=== PATIENT | female | born 1995 | race American Indian/Alaskan Native ===

== ENCOUNTER 2019-05-18 02:13 | Emergency (ER) | payer BC ==
[2019-05-18] MEDS ORDERED: ONDANSETRON 4 MG ODT TAB PO ONE (02:34)
[2019-05-18] MEDS ORDERED: ONDANSETRON 4 MG ODT TAB ONE (02:36)
[2019-05-18 03:08] LABS: Basophils % (Auto) 0.4 % (0.0-1.8); Eosinophils # (Auto) 0.2 K/mm3 (0.0-0.4); Eosinophils % (Auto) 1.9 % (0.0-4.3); Hematocrit 39.9 % (30.3-42.9); Hemoglobin 13.1 gm/dl (10.1-14.3); Lymphocytes # (Auto) 2.1 K/mm3 (1.2-5.4); Lymphocytes % (Auto) 23.5 % (13.4-35.0); Mean Corpuscular HGB Conc 33 % (30-34); Mean Corpuscular Volume 89 fl (79-97); Monocytes # (Auto) 0.4 K/mm3 (0.0-0.8); Monocytes % (Auto) 4.8 % (0.0-7.3); Platelet Count 223 K/mm3 (140-440); Red Blood Count 4.47 M/mm3 (3.65-5.03); Red Cell Distribution Width 14.1 % (13.2-15.2)
[2019-05-18] MEDS ORDERED: SODIUM CHLORIDE 0.9% 1000 ML 1,000 ML IV ONE ×2 (03:27→08:45)
[2019-05-18] MEDS ORDERED: HYDROmorphone 1 MG/1 ML INJ IV ONE ×3 (03:32→05:38)
[2019-05-18] MEDS ORDERED: ONDANSETRON 4 MG/2 ML INJ IV ONE (03:32)
[2019-05-18] MEDS ORDERED: HYDROmorphone 1 MG/1 ML INJ ONE (03:34)
[2019-05-18] MEDS ORDERED: ONDANSETRON 4 MG/2 ML INJ ONE (03:34)
[2019-05-18 03:35] LABS: Alanine Aminotransferase 17 units/L (7-56); Albumin 4.6 g/dL (3.9-5); BUN/Creatinine Ratio 21; Blood Urea Nitrogen 15 mg/dL (7-17); Calcium 9.4 mg/dL (8.4-10.2); Hemolysis Index 5
[2019-05-18 04:28] LABS: Bacteria,Urine 1+ /HPF (Negative); Bilirubin,Urine NEG (Negative); Blood,Urine NEG (Negative); Color,Urine Yellow (Yellow); Mucus,Urine 1+ /HPF; Urobilinogen,Urine < 2.0 mg/dL (<2.0)
--- NOTE | 2019-05-18 04:41 | Cat Scan Report ---
CT ABDOMEN AND PELVIS WITH IV CONTRAST INDICATION: Upper abdominal pain, nausea, vomiting and diarrhea TECHNIQUE: Following the administration of intravenous contrast, multiple axial CT images of the abdo men and pelvis were acquired. Sagittal and coronal reformats were obtained. All CT performed at this facility utilize dose reduction techniques including automated exposure control, iterative reconstru ction and weight based dosing when appropriate to reduce patient radiation dose to as low as reasonab ly achievable. COMPARISON: None FINDINGS: Limited imaging of the bilateral lung bases demonstrates minimal left basilar atelectasis. Abdomen: The liver, spleen, gallbladder, pancreas, bilateral adrenal glands and bilateral kidneys bienvenido w no evidence of acute abnormality. There is no free fluid or evidence of bowel obstruction in the ap pendix is visualized and appears normal. Pelvis: Uterus and urinary bladder appear normal. There is no free pelvic fluid. Bones and Soft Tissues: Evaluation of bony structures demonstrates no evidence of acute bony abnormal ity. Evaluation of soft tissue structures demonstrates no focal soft tissue abnormality IMPRESSION: 1. No CT evidence of acute obstructive or inflammatory process within the abdomen or pelvis. Signer Name: Karla Lakhani MD Signed: 05/18/2019 4:37 AM Workstation Name: [id number]
--- NOTE | 2019-05-18 05:27 | Emergency Department Report ---
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 He was initially intermittent but today it became constant and severe rated 10/10 in intensity. Patient is uncomfortable and writhing in pain. She also complains of nausea, vomiting, and some diarrhea. No reports of fever or dysuria. 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 She states she had pancreatitis as a child does not know the cause. - Related Data Previous Rx's Medication Instructions Recorded Last Taken Type Famotidine [Pepcid] 20 mg PO BID #20 tablet 05/18/19 Unknown Rx HYDROcodone/APAP 5-325 [[place] 1 each PO Q4HR PRN #20 tablet 05/18/19 Unknown Rx 5/325] Ondansetron [Zofran Odt] 4 mg PO Q8HR PRN #20 tab.rapdis 05/18/19 Unknown Rx Allergies Allergy/AdvReac Type Severity Reaction Status Date / Time No Known Allergies Allergy Verified 05/18/19 02:37 ED Review of Systems ROS: Stated complaint: ABDOMINAL PAIN Other details as noted in HPI Comment: All other systems reviewed and negative ED Past Medical Hx - Past Medical History Previous Medical History?: Yes Additional medical history: abd tumor - Surgical History Past Surgical History?: Yes Additional Surgical History: abd - Social History Smoking Status: Never Smoker Substance Use Type: None - Medications Home Medications: Home Medications Medication Instructions Recorded Confirmed Last Taken Type Famotidine [Pepcid] 20 mg PO BID #20 tablet 05/18/19 Unknown Rx HYDROcodone/APAP 5-325 [[place] 1 each PO Q4HR PRN #20 tablet 05/18/19 Unknown Rx 5/325] Ondansetron [Zofran Odt] 4 mg PO Q8HR PRN #20 tab.rapdis 05/18/19 Unknown Rx ED Physical Exam - General Limitations: No Limitations - Other Other exam information: General: Distress secondary to pain Head: Atraumatic Eyes: normal appearance ENT: Moist mucous membranes Neck: Normal appearance, no midline tenderness Chest: Clear to auscultation bilaterally CV: Regular rate and rhythm Abdomen: Soft, normal bowel sounds, midline vertical suprapubic surgical scar. Patient has tenderness across the abdomen above the umbilicus without rebound or guarding Back: Normal inspection Extremity: Normal inspection infection, full range of motion Neuro: Alert O x 3, no facial asymmetry, speech clear, no gross motor sensory deficit Skin: No rash ED Course Vital Signs 05/18/19 05/18/19 05/18/19 02:25 03:30 03:45 Temperature 97.3 F L Pulse Rate 107 H Respiratory 18 Rate Blood Pressure 77/58 135/71 101/57 Blood Pressure [Right] O2 Sat by Pulse 98 100 Oximetry 05/18/19 05/18/19 05/18/19 04:00 04:03 04:15 Temperature Pulse Rate 93 H 71 Respiratory 18 16 16 Rate Blood Pressure 101/57 85/45 Blood Pressure [Right] O2 Sat by Pulse 100 100 100 Oximetry 05/18/19 05/18/19 05/18/19 04:31 04:45 05:00 Temperature Pulse Rate 65 76 61 Respiratory 19 20 20 Rate Blood Pressure 118/81 99/55 102/53 Blood Pressure [Right] O2 Sat by Pulse 100 100 99 Oximetry 05/18/19 05/18/19 05/18/19 05:15 06:26 08:35 Temperature 97.6 F Pulse Rate 73 69 Respiratory 14 18 18 Rate Blood Pressure 116/50 Blood Pressure 93/61 [Right] O2 Sat by Pulse 99 96 Oximetry 05/18/19 05/18/19 05/18/19 08:51 09:00 09:15 Temperature Pulse Rate 63 59 L 59 L Respiratory 22 19 17 Rate Blood Pressure 116/50 104/53 104/53 Blood Pressure [Right] O2 Sat by Pulse 98 99 Oximetry 05/18/19 05/18/19 05/18/19 09:30 09:45 10:00 Temperature Pulse Rate 69 64 63 Respiratory 25 H 19 19 Rate Blood Pressure 104/64 104/64 107/62 Blood Pressure [Right] O2 Sat by Pulse 99 97 97 Oximetry 05/18/19 05/18/19 05/18/19 10:16 10:30 10:45 Temperature Pulse Rate 57 L 58 L Respiratory 18 18 Rate Blood Pressure 107/62 107/62 107/62 Blood Pressure [Right] O2 Sat by Pulse 98 98 98 Oximetry 05/18/19 05/18/19 11:00 11:15 Temperature Pulse Rate Respiratory Rate Blood Pressure 93/56 117/60 Blood Pressure [Right] O2 Sat by Pulse 98 98 Oximetry - Reevaluation(s) Reevaluation #1: 05/18/19 05:42 Patient is currently more calm and without any distress after receiving Dilaudid 0.5 mg, Zofran 4 mg IV, and will liter normal saline. Upon reassessment she states she still is nauseated and has some residual pain. Patient has maxed out on Zofran and therefore Reglan, Benadryl, and repeat Dilaudid 0.5 provided. No vomiting noted in the ED. Po potassium also ordered. At this time patient has been prepped for discharge and will be discussed with oncoming provider to reassess and discharge if symptoms have improved. ED Medical Decision Making - Lab Data Result diagrams: 05/18/19 02:46 05/18/19 02:46 Lab Results 05/18/19 05/18/19 05/18/19 Range/Units 02:46 02:46 02:46 WBC 8.7 (4.5-11.0) K/mm3 RBC 4.47 (3.65-5.03) M/mm3 Hgb 13.1 (10.1-14.3) gm/dl Hct 39.9 (30.3-42.9) % MCV 89 (79-97) fl MCH 29 (28-32) pg MCHC 33 (30-34) % RDW 14.1 (13.2-15.2) % Plt Count 223 (140-440) K/mm3 Lymph % (Auto) 23.5 (13.4-35.0) % Mower % (Auto) 4.8 (0.0-7.3) % Eos % (Auto) 1.9 (0.0-4.3) % Baso % (Auto) 0.4 (0.0-1.8) % Lymph # 2.1 (1.2-5.4) K/mm3 Mower # 0.4 (0.0-0.8) K/mm3 Eos # 0.2 (0.0-0.4) K/mm3 Baso # 0.0 (0.0-0.1) K/mm3 Seg Neutrophils % 69.4 (40.0-70.0) % Seg Neutrophils # 6.1 (1.8-7.7) K/mm3 Sodium 141 (137-145) mmol/L Potassium 3.4 L (3.6-5.0) mmol/L Chloride 101.0 (98-107) mmol/L Carbon Dioxide 20 L (22-30) mmol/L Anion Gap 23 mmol/L BUN 15 (7-17) mg/dL Creatinine 0.7 (0.7-1.2) mg/dL Estimated GFR > 60 ml/min BUN/Creatinine Ratio 21 % Glucose 140 H (65-100) mg/dL Calcium 9.4 (8.4-10.2) mg/dL Total Bilirubin 0.30 (0.1-1.2) mg/dL AST 19 (5-40) units/L ALT 17 (7-56) units/L Alkaline Phosphatase 78 (35-129) units/L Total Protein 7.8 (6.3-8.2) g/dL Albumin 4.6 (3.9-5) g/dL Albumin/Globulin Ratio 1.4 % Lipase (13-60) units/L HCG, Qual Negative (Negative) Urine Color (Yellow) Urine Turbidity (Clear) Urine pH (5.0-7.0) Ur Specific [place] (1.003-1.030) Urine Protein (Negative) mg/dL Urine Glucose (UA) (Negative) mg/dL Urine Ketones (Negative) mg/dL Urine Blood (Negative) Urine Nitrite (Negative) Urine Bilirubin (Negative) Urine Urobilinogen (<2.0) mg/dL Ur Leukocyte Esterase (Negative) Urine WBC (Auto) (0.0-6.0) /HPF Urine RBC (Auto) (0.0-6.0) /HPF U Epithel Cells (Auto) (0-13.0) /HPF Urine Bacteria (Auto) (Negative) /HPF Urine Mucus /HPF 05/18/19 05/18/19 Range/Units 02:46 Unknown WBC (4.5-11.0) K/mm3 RBC (3.65-5.03) M/mm3 Hgb (10.1-14.3) gm/dl Hct (30.3-42.9) % MCV (79-97) fl MCH (28-32) pg MCHC (30-34) % RDW (13.2-15.2) % Plt Count (140-440) K/mm3 Lymph % (Auto) (13.4-35.0) % Mower % (Auto) (0.0-7.3) % Eos % (Auto) (0.0-4.3) % Baso % (Auto) (0.0-1.8) % Lymph # (1.2-5.4) K/mm3 Mower # (0.0-0.8) K/mm3 Eos # (0.0-0.4) K/mm3 Baso # (0.0-0.1) K/mm3 Seg Neutrophils % (40.0-70.0) % Seg Neutrophils # (1.8-7.7) K/mm3 Sodium (137-145) mmol/L Potassium (3.6-5.0) mmol/L Chloride (98-107) mmol/L Carbon Dioxide (22-30) mmol/L Anion Gap mmol/L BUN (7-17) mg/dL Creatinine (0.7-1.2) mg/dL Estimated GFR ml/min BUN/Creatinine Ratio % Glucose (65-100) mg/dL Calcium (8.4-10.2) mg/dL Total Bilirubin (0.1-1.2) mg/dL AST (5-40) units/L ALT (7-56) units/L Alkaline Phosphatase (35-129) units/L Total Protein (6.3-8.2) g/dL Albumin (3.9-5) g/dL Albumin/Globulin Ratio % Lipase 163 H (13-60) units/L HCG, Qual (Negative) Urine Color Yellow (Yellow) Urine Turbidity Clear (Clear) Urine pH 6.0 (5.0-7.0) Ur Specific [place] 1.027 (1.003-1.030) Urine Protein 30 mg/dl (Negative) mg/dL Urine Glucose (UA) Neg (Negative) mg/dL Urine Ketones Neg (Negative) mg/dL Urine Blood Neg (Negative) Urine Nitrite Neg (Negative) Urine Bilirubin Neg (Negative) Urine Urobilinogen < 2.0 (<2.0) mg/dL Ur Leukocyte Esterase Neg (Negative) Urine WBC (Auto) 1.0 (0.0-6.0) /HPF Urine RBC (Auto) 2.0 (0.0-6.0) /HPF U Epithel Cells (Auto) 2.0 (0-13.0) /HPF Urine Bacteria (Auto) 1+ (Negative) /HPF Urine Mucus 1+ /HPF - Radiology Data Radiology results: report reviewed CT ABDOMEN AND PELVIS WITH IV CONTRAST INDICATION: Upper abdominal pain, nausea, vomiting and diarrhea TECHNIQUE: Following the administration of intravenous contrast, multiple axial CT images of the abdomen and pelvis were acquired. Sagittal and coronal reformats were obtained. All CT performed at this facility utilize dose reduction techniques including automated exposure control, iterative reconstruction and weight based dosing when appropriate to reduce patient radiation dose to as low as reasonably achievable. COMPARISON: None FINDINGS: Limited imaging of the bilateral lung bases demonstrates minimal left basilar atelectasis. Abdomen: The liver, spleen, gallbladder, pancreas, bilateral adrenal glands and bilateral kidneys show no evidence of acute abnormality. There is no free fluid or evidence of bowel obstruction in the appendix is visualized and appears normal. Pelvis: Uterus and urinary bladder appear normal. There is no free pelvic fluid. Bones and Soft Tissues: Evaluation of bony structures demonstrates no evidence of acute bony abnormality. Evaluation of soft tissue structures demonstrates no focal soft tissue abnormality IMPRESSION: 1. No CT evidence of acute obstructive or inflammatory process within the abdomen or pelvis. - Medical Decision Making Despite patient's dramatic ED presentation her workup has been unremarkable. Initial BP was 77/53 in triage improved spontaneously and patient had a normal blood pressure when it was rechecked in the department without any intervention or treatment. CT abdomen and pelvis are unremarkable. Mild lipase elevation without CT findings of pancreatitis. No signs of acute infection. Pain controlled after Dilaudid 0.5 mg and Zofran. No vomiting in the ED. Patient wa s discharged home with medications for pain and nausea and outpatient follow-up - Differential Diagnosis obstruction, gastritis, peptic ulcer, pefrorated ulcer, cholecystitis Critical Care Time: No Critical care attestation.: If time is entered above; I have spent that time in minutes in the direct care of this critically ill patient, excluding procedure time. ED Disposition Clinical Impression: Abdominal pain, Nausea and vomiting Disposition: - TO HOME OR SELFCARE Is pt being admited?: No Does the pt Need Aspirin: No Condition: Stable Instructions: Acute Nausea and Vomiting (ED), Abdominal Pain (ED) Additional Instructions: Take the medication as prescribed. Follow-up with your doctor or doctor/clinic provided. Return if symptoms worsen as indicated by your discharge instructions. Prescriptions: HYDROcodone/APAP 5-325 [[place] 5/325] 1 each PO Q4HR PRN #20 tablet PRN Reason: Pain Famotidine [Pepcid] 20 mg PO BID #20 tablet Ondansetron [Zofran Odt] 4 mg PO Q8HR PRN #20 tab.rapdis PRN Reason: Nausea And Vomiting Referrals: KENDY KAN MD [Staff Physician] - 3-5 Days [facility] [Provider Group] - 3-5 Days (GI doctor ) [facility] [Provider Group] - 3-5 Days (primary care clinic ) Time of Disposition: 11:35
[2019-05-18] MEDS ORDERED: POTASSIUM CHLORIDE ER 20 MEQ TAB PO ONE (05:28)
[2019-05-18] MEDS ORDERED: diphenhydrAMINE 50 MG/ML VIAL IV ONE (05:38)
[2019-05-18] MEDS ORDERED: METOCLOPRAMIDE 10 MG/2 ML INJ IV ONE (05:38)
[2019-05-18] MEDS ORDERED: FAMOTIDINE 20 MG/2 ML INJ IV ONE (05:41)
[2019-05-18 11:19] VITALS: BP 117/60
== END 2019-05-18 11:24 | disposition home or self-care (01) ==
LOC: ED 02:13
DX: R11.2 Nausea with vomiting, unspecified (principal); R10.9 Unspecified abdominal pain; Z79.899 Other long term (current) drug therapy
CPT/HCPCS: 36415; 74177; 80053; 81001; 83690; 84703; 85025; 96361; 96374; 96375; 99284; J1170; J1200; J2405; J2765; J7030; Q9967; Q0162